=== PATIENT | male | born 1960 | race Caucasian/White ===

== ENCOUNTER 2023-10-12 00:54 | Day surgery (SDC) | payer OTHER, SELFPAY ==
[2023-09-27 08:56] VITALS: BMI 30.3
--- NOTE | 2023-10-10 09:34 | SUR.PREOP ---
Patient called regarding upcoming procedure. Reviewed preop instructions, appointment times, and procedure prep.
--- NOTE | 2023-10-11 16:13 | P.HP_ITS ---
History of Present Illness History of Present Illness Consent: Risks, benefits, and alternatives have been discussed and questions answered. Patient agrees to proceed with procedure. Chief complaint: hx of colon polyps Narrative: Dre Jacobo is a 63 year old male who has had a polyp removed about 7 years ago. Review of Systems Review of Systems: All systems reviewed & are unremarkable except as noted in HPI and below PMFSH Past Medical History Medical History (Updated 10/12/23 @ 11:48 by Greg Das MD) Diabetes mellitus Hypertension Obesity Family History Family History Mother Diabetes mellitus Aneurysm Sibling Diabetes mellitus Father Heart disease Social History Social History Smoking packs per day: 1 Smoking cigarettes per day: 20.0 Years smoked: 15 Smoking pack-years: 15.00 Smoking status: Former smoker Tobacco type: cigarettes Second hand tobacco smoke exposure: No Smoking end date: 10/29/95 Alcohol intake: never Substance use: never Substance use type: does not use Living arrangements: with family Occupation/Education: occupation Additional occupation/education comments: [employer] Gender identity (if verbalized by the patient): Male Spiritual care concerns: No Meds Home Medications and Allergies Home Medications Medication Instructions Recorded Confirmed Type aspirin 81 mg tablet,delayed 81 mg PO DAILY 12/17/19 09/27/23 History release (Adult Low Dose Aspirin) propranolol 40 mg tablet 40 mg PO Q12H PRN I10 - Essential 07/12/22 09/27/23 Rx (primary) hypertension #30 tabs metformin 1,000 mg tablet See Rx Instructions .Route 07/24/22 09/27/23 Rx .COMPLEX #180 tabs lisinopril 20 mg tablet 20 mg PO DAILY #90 tabs 08/15/22 09/27/23 Rx atorvastatin 40 mg tablet 40 mg PO DAILY #90 tabs 11/27/22 09/27/23 Rx glyburide 5 mg tablet 2.5 mg PO DAILY PRN High blood 09/27/23 09/27/23 History sugar trazodone 100 mg tablet 100 mg PO HS PRN Sleep 09/27/23 09/27/23 History Allergies Allergy/AdvReac Type Severity Reaction Status Date / Time Penicillins Allergy Mild HIVES, Verified 10/12/23 11:20 RASH, THROAT SWELLING, SOB Exam Const: General: alert Orientation/consciousness: patient oriented x3 Resp: Auscultation: clear to auscultation bilaterally Cardio: Rhythm: regular rhythm GI: GI Palp: Yes Soft to palpation and No Tenderness to palpation present (GI) Neuro: General: patient oriented x3 Assessment and Plan Assessment and plan (1) Colon cancer screening: Code(s): Z12.11 - Encounter for screening for malignant neoplasm of colon Status: Acute Assessment and Plan: Colonoscopy with possible biopsy or polypectomy or cautery or injection of substances.
[2023-10-12 11:21] VITALS: BP 163/68; PULSE 91; RESP 17; TEMP 36.3; O2SAT 99
[2023-10-12] MEDS: LACTATED RINGERS 1,000 ML 150 ML IV CONT (11:29)
[2023-10-12 11:46] LABS: Glucose Point of Care 130 mg/dl (65-105)
--- NOTE | 2023-10-12 11:48 | WPDANESEPPF ---
Anes - Initial Pre Proc Eval Procedure: Operation Date: 10/12/23 12:30 Proposed Procedures p Colonoscopy - Haja Vera MD Date/Time: 10/12/23 11:48 Surgeon: Haja Vera MD Pre Op Diagnosis: hx of colon polyps Patient Data Age: 63 Gender: M Height: 1.91 m Weight: 111.1 kg Last Vital Signs Temp 36.3 C L 10/12/23 11:21 Pulse 91 10/12/23 11:21 Resp 17 10/12/23 11:21 BP 163/68 H 10/12/23 11:21 Pulse Ox 99 10/12/23 11:21 O2 Del Method Room Air 10/12/23 11:21 Allergies Allergy/AdvReac Type Severity Reaction Status Date / Time Penicillins Allergy Mild HIVES, Verified 10/12/23 11:20 RASH, THROAT SWELLING, SOB Home Medications Medication Instructions Recorded Confirmed Type aspirin 81 mg tablet,delayed 81 mg PO DAILY 12/17/19 09/27/23 History release (Adult Low Dose Aspirin) propranolol 40 mg tablet 40 mg PO Q12H PRN I10 - Essential 07/12/22 09/27/23 Rx (primary) hypertension #30 tabs metformin 1,000 mg tablet See Rx Instructions .Route 07/24/22 09/27/23 Rx .COMPLEX #180 tabs lisinopril 20 mg tablet 20 mg PO DAILY #90 tabs 08/15/22 09/27/23 Rx atorvastatin 40 mg tablet 40 mg PO DAILY #90 tabs 11/27/22 09/27/23 Rx glyburide 5 mg tablet 2.5 mg PO DAILY PRN High blood 09/27/23 09/27/23 History sugar trazodone 100 mg tablet 100 mg PO HS PRN Sleep 09/27/23 09/27/23 History Laboratory Tests 10/12/23 11:43 POC Capillary Glucose 130 H mg/dl (65-105) Patient hx anesthesia problems: none Family hx anesthesia problems: none Results Review: All pre-operative results and documents have been reviewed as part of the pre-operative evaluation. [facility] Past Medical History Medical History (Updated 10/12/23 @ 11:48 by Greg Das MD) Diabetes mellitus Hypertension Obesity Family History Family History Mother Diabetes mellitus Aneurysm Sibling Diabetes mellitus Father Heart disease Social History Social History Smoking packs per day: 1 Smoking cigarettes per day: 20.0 Years smoked: 15 Smoking pack-years: 15.00 Smoking status: Former smoker Tobacco type: cigarettes Second hand tobacco smoke exposure: No Smoking end date: 10/29/95 Alcohol intake: never Substance use: never Substance use type: does not use Living arrangements: with family Occupation/Education: occupation Additional occupation/education comments: [employer] Gender identity (if verbalized by the patient): Male Spiritual care concerns: No Anes - Eval Final PreProcedure Day of Procedure 10/12/23 11:48 Patient weight: obese Heart: regular rate and rhythm Lungs: clear to auscultation Airway: Mallampati scale class II Neurological: alert and oriented Last oral intake: >/= 8 hours ASA classification: III Emergent: no Anesthetic plan: proceed Anesthesia type and monitoring: general GIVS and standard monitoring Results Review: All pre-operative results and documents have been reviewed as part of the pre-operative evaluation. Informed Consent: The patient's anesthetic plan and its attendant risks and benefits were discussed with the patient/family/POA. Questions were solicited and answers provided to the satisfaction of the patient/family/POA.
[2023-10-12 12:33] VITALS: BP 100/64; PULSE 68; RESP 17; O2SAT 97
[2023-10-12 12:43] VITALS: BP 109/73; PULSE 70; RESP 20; O2SAT 96
[2023-10-12 12:53] VITALS: BP 121/78; PULSE 69; RESP 20; O2SAT 97
== END 2023-10-12 13:01 | disposition home or self-care (01) ==
PROVIDERS: PCP Internal Medicine; Visit Provider Internal Medicine Gastroenterology
PROC: 0DJD8ZZ Inspection of Lower Intestinal Tract, Via Natural or Artificial Opening Endoscopic (ICD-10-PCS; CPT 45378; principal; 2023-10-12 12:30)
DX: Z12.11 Encounter for screening for malignant neoplasm of colon (principal); Z86.010 Personal history of colon polyps; K57.30 Diverticulosis of large intestine without perforation or abscess without bleeding; E11.9 Type 2 diabetes mellitus without complications; I10 Essential (primary) hypertension; E66.9 Obesity, unspecified; Z68.30 Body mass index [BMI] 30.0-30.9, adult; Z87.891 Personal history of nicotine dependence
CPT/HCPCS: 45378; 82948; J2704; J7120